=== PATIENT | male | born 1975 | race Caucasian/White ===

== ENCOUNTER 2019-07-23 08:49 | Emergency (ER) | payer OTHER ==
[2019-07-23 09:01] VITALS: BP 153/98
--- NOTE | 2019-07-23 09:10 | UC ---
Throat Pain/Nasal Emil HPI - HPI Summary HPI Summary: sinus pain pressure ear fullness low grade fever head aches worsening over the past 2 weeks - History of Current Complaint Chief Complaint: UCGeneralIllness Stated Complaint: SINUS PROBLEM Time Seen by Provider: 07/23/19 08:56 Hx Obtained From: Patient Onset/Duration: Gradual Onset, Lasting Weeks - 2, Still Present Pain Intensity: 5 Pain Scale Used: 0-10 Numeric Cough: Nonproductive Associated Signs & Symptoms: Positive: Sinus Discomfort, Fever - Allergies/Home Medications Allergies/Adverse Reactions: Allergies Allergy/AdvReac Type Severity Reaction Status Date / Time acetaminophen [From Vicodin] Allergy Hives Verified 07/23/19 08:56 hydrocodone [From Vicodin] Allergy Hives Verified 07/23/19 08:56 Home Medications: Home Medications Canagliflozin (NF) [Invokana (NF)] 1 tab PO DAILY 07/23/19 [History Confirmed ] Clopidogrel TAB* [Plavix TAB*] 1 tab PO 07/23/19 [History] Rosuvastatin Calcium 1 tab PO DAILY 07/23/19 [History Confirmed 07/23/19] PMH/Surg Hx/FS Hx/Imm Hx Previously Healthy: No Endocrine History: Diabetes Cardiovascular History: Hypertension, Myocardial Infarction - Surgical History Surgical History: Yes Surgery Procedure, Year, and Place: Tonsillectomy as a child - Family History Known Family History: Positive: None - Social History Occupation: Employed Full-time Lives: With Family Alcohol Use: Rare Substance Use Type: None Smoking Status (MU): Never Smoked Tobacco Review of Systems All Other Systems Reviewed And Are Negative: Yes Constitutional: Positive: Fever, Chills Skin: Positive: Negative Eyes: Positive: Negative ENT: Positive: Ear Ache, Nasal Discharge, Sinus Congestion, Sinus Pain/ Tenderness Respiratory: Positive: Cough Cardiovascular: Positive: Negative Gastrointestinal: Positive: Negative Genitourinary: Positive: Negative Motor: Positive: Negative Neurovascular: Positive: Negative Musculoskeletal: Positive: Negative Neurological: Positive: Negative Psychological: Positive: Negative Is Patient Immunocompromised?: No Physical Exam Triage Information Reviewed: Yes Appearance: Well-Appearing, No Pain Distress, Well-Nourished Vital Signs: Initial Vital Signs Temp 98.7 F 07/23/19 08:57 Pulse 100 07/23/19 08:57 Resp 18 07/23/19 08:57 BP 153/98 07/23/19 08:57 Pulse Ox 100 07/23/19 08:57 Vital Signs Reviewed: Yes Eye Exam: Normal Eyes: Positive: Conjunctiva Clear ENT Exam: Normal ENT: Positive: Normal ENT inspection, Hearing grossly normal, Pharynx normal, Nasal congestion, TMs normal, Sinus tenderness, Uvula midline. Negative: Tonsillar swelling, Tonsillar exudate, Trismus, Muffled voice, Hoarse voice, Dental tenderness Dental Exam: Normal Neck exam: Normal Neck: Positive: Supple, Nontender, No Lymphadenopathy Respiratory Exam: Normal Respiratory: Positive: Chest non-tender, Lungs clear, Normal breath sounds, No respiratory distress, No accessory muscle use Cardiovascular Exam: Normal Cardiovascular: Positive: RRR, No Murmur, Pulses Normal, Brisk Capillary Refill Musculoskeletal Exam: Normal Musculoskeletal: Positive: Strength Intact, ROM Intact, No Edema Neurological Exam: Normal Neurological: Positive: Alert, Muscle Tone Normal Psychological Exam: Normal Skin Exam: Normal Throat Pain/Nasal Course/Dx - Course Course Of Treatment: avoid cough and cold medications with sudafed, Augmentin, flonase follow with pcp prn and for blood pressure re-check - Differential Dx/Diagnosis Provider Diagnosis: Hypertension, Sinusitis, acute Discharge ED - Sign-Out/Discharge Documenting (check all that apply): Patient Departure All imaging exams completed and their final reports reviewed: No Studies - Discharge Plan Condition: Stable Disposition: HOME Prescriptions: Amoxicillin/Clavulanate TAB* [Augmentin TAB 875*] 875 mg PO BID #20 tab Fluticasone NASAL SPRAY 50MCG* [Flonase NASAL SPRAY 50MCG*] 2 spray BOTH NARES DAILY #1 btl Patient Education Materials: Sinusitis (ED), How to Use Nasal [place] (ED), Hypertension (ED) Referrals: Tomy Choi MD [Primary Care Provider] - Additional Instructions: Avoid cough and cold medications with sudafed as that will raise you blood pressure and heart rate - Billing Disposition and Condition Condition: STABLE Disposition: Home
== END 2019-07-23 09:17 | disposition home or self-care (01) ==
LOC: UCEAST 08:49
DX: J01.90 Acute sinusitis, unspecified (principal); I10 Essential (primary) hypertension; H92.09 Otalgia, unspecified ear; I25.2 Old myocardial infarction; E11.9 Type 2 diabetes mellitus without complications; Z88.5 Allergy status to narcotic agent; Z79.02 Long term (current) use of antithrombotics/antiplatelets; Z79.84 Long term (current) use of oral hypoglycemic drugs
CPT/HCPCS: 99212; G0463